=== PATIENT | male | born 1950 | race Two or more races ===

== ENCOUNTER 2023-05-01 20:09 | Inpatient (IN) | payer OTHER ==
[~2023-05-01] VITALS: Ht 190.5 cm; Wt 92.0 kg
[2023-05-01] MEDS ORDERED: IPRATROPIUM BROM 0.5 MG/2.5ML INH SOL NEB ONE ×2 (20:45→23:45)
[2023-05-01] MEDS ORDERED: ALBUTEROL SULF 2.5 MG/0.5ML(0.5%) NEB SOLN NEB ONE (20:45)
[2023-05-01] MEDS ORDERED: methylPREDNISolone SOD SUCC 125 MG/2 ML VL IV ONE (20:45)
[2023-05-01 22:40] VITALS: PULSE 136; RESP 20; O2SAT 90
[2023-05-01 22:46] LABS: Eosinophils # (auto) 0.5 10 ^3/uL (0-0.8); Eosinophils % (auto) 2.3 % (0.0-7.0); Hemoglobin 11.8 g/dL (13.5-17.5)
[2023-05-01 22:48] LABS: Basophils # (auto) 0 10 ^3/uL (0-0.2); Basophils % (auto) 0.2 % (0.0-2.0); Hematocrit 38.7 % (41.0-53.0); Lymphocytes # (auto) 1.2 10 ^3/uL (0.4-5.4); Lymphocytes % (auto) 6.2 % (10.0-50.0); Mean Corpuscular Hgb Conc. 30.5 g/dL (32.0-36.0); Monocytes # (auto) 1.6 10 ^3/uL (0-1.3); Monocytes % (auto) 7.9 % (0.0-12.0); Neutrophils # (auto) 16.4 10 ^3/uL (1.6-8.6); Neutrophils % (auto) 83.4 % (37.0-80.0); Red Blood Cells 4.72 10^6/uL (4.5-5.90); Red Cell Distribution Width 16.6 % (11.8-14.3); White Blood Cell 19.6 10^3/uL (4.4-10.8)
[2023-05-01] MEDS ORDERED: dilTIAZem 25 MG/5 ML VIAL IV ONE ×2 (23:00→23:01)
[2023-05-01 23:04] LABS: INR 1.12 (0.9-1.15); Partial Thromboplastin Time 35.9 SEC (24.5-34.5); Prothrombin Time 11.7 sec (9.3-11.8)
[2023-05-01 23:07] LABS: Alanine Aminotransferase 40 U/L (7-40); Alkaline Phosphatase 131 U/L (46-116); Anion Gap 9 (5-15); Aspartate Aminotransferase 17 U/L (13-40); BUN/Creatinine Ratio 16.9 (10.0-20.0); Blood Urea Nitrogen 14 mg/dL (9-23); Calcium 10.2 mg/dL (8.7-10.4); Carbon Dioxide 30 mmol/L (20-30); Chloride 102 mmol/L (98-107); Glucose 165 mg/dL (74-106); Sodium 141 mmol/L (136-145)
[2023-05-01 23:08] LABS: Albumin 4.3 g/dL (3.2-4.8); Bilirubin, Total 0.3 mg/dL (0.2-1.0); Total Protein 7.5 g/dL (5.7-8.2)
[2023-05-01] MEDS ORDERED: dilTIAZem 125mg/125ml BAG KIT 125 ML IV ONE (23:45)
[2023-05-02] VITALS (34 sets, daily range): BP systolic 63–134; BP diastolic 42–76; PULSE 91–144; RESP 14–26; TEMP 36.9; O2SAT 91–98
[2023-05-02] MEDS ORDERED: PIPERACILLIN-TAZOB 3.375GM 100 ML IV ONE
[2023-05-02] MEDS ORDERED: AZITHROMYCIN 500MG/ 250ML 250 ML IV ONE
[2023-05-02] MEDS ORDERED: LORazepam 2MG/ML-1ML VIAL ONE (00:05)
[2023-05-02] MEDS ORDERED: HEPARIN SODIUM (PORCINE) 5000 UNITS/ML 1ML VIAL IV ONE ×3 (00:15→14:15)
[2023-05-02] MEDS ORDERED: LORazepam 2MG/ML-1ML VIAL IV ONE (00:15)
[2023-05-02] MEDS ORDERED: SODIUM CHLORIDE 0.9% 1,000 ML IV ONE ×2 (00:15)
[2023-05-02] MEDS ORDERED: NITROGLYCERIN 0.4 MG SL TAB SL PRN (00:30)
[2023-05-02] MEDS ORDERED: DEXTROSE (50%) 50ML SYRG IV PRN (00:30)
[2023-05-02] MEDS ORDERED: ALBUTEROL SULF 2.5 MG/0.5ML(0.5%) NEB SOLN NEB PRN (00:30)
[2023-05-02] MEDS ORDERED: MORPHINE SULFATE INJ 2 MG/ml SYRG IV PRN (00:30)
[2023-05-02] MEDS ORDERED: ACETAMINOPHEN 325 MG TAB PO PRN ×2 (00:30→17:45)
[2023-05-02] MEDS ORDERED: IPRATROPIUM BROM 0.5 MG/2.5ML INH SOL NEB PRN (00:30)
[2023-05-02 01:15] LABS: Base Excess 0.3 mmol/L (-2.0-2.0)
[2023-05-02 03:14] LABS: Urine Bacteria NONE SEEN /hpf (None Seen); Urine Blood Negative /uL (Negative); Urine Clarity Clear (Clear); Urine Color Colorless (Yellow); Urine Hyaline Cast FEW /lpf (0 - 2); Urine Protein, UAD Negative (Negative); Urine Specific Gravity 1.023 (1.001-1.035); Urine Urobilinogen Normal (Negative); Urine WBC 2 /hpf (0 - 3)
[2023-05-02] MEDS ORDERED: IOHEXOL 350 MG/ML 100ML IJ ONE (04:09)
[2023-05-02] MEDS: ACCU-CHEK COMFORT CURVE STRIP VI SCH ×4 (06:33→21:33)
[2023-05-02] MEDS: InsuLIN REG 1unit/0.01ml Soln (100units/ml) SC SCH ×4 (06:35→21:36)
[2023-05-02] MEDS ORDERED: HEPARIN DRIP/D5W 100UNITS/ML 250 ML IV SCH (07:00)
[2023-05-02 08:02] LABS: Triglycerides 62 mg/dL (< 150)
[2023-05-02 08:03] LABS: LDL Cholesterol 75 mg/dL (< 100)
[2023-05-02 08:04] LABS: Cholesterol 125 mg/dL (< 200); HDL Cholesterol 38 mg/dL (40-59)
[2023-05-02] MEDS ORDERED: dilTIAZem 125mg/125ml BAG KIT 100 ML IV SCH (08:30)
[2023-05-02] MEDS: ONDANSETRON HCL 4 MG/2 ML VIAL IV PRN (08:45)
[2023-05-02] MEDS ORDERED: cefTRIAXone 1GM/50ML D5W 50 ML IV SCH (09:00)
[2023-05-02] MEDS ORDERED: ASPirin 81 mg TAB PO SCH (10:00)
[2023-05-02] MEDS ORDERED: ENOXAPARIN SOD 40 MG/0.4 ML SYRINGE SC SCH (10:00)
[2023-05-02] MEDS ORDERED: AZITHROMYCIN 500MG/ 250ML 250 ML IV SCH (10:00)
[2023-05-02 10:44] LABS: Chloride 105 mmol/L (98-107); Potassium 4.3 mmol/L (3.5-5.1); Sodium 141 mmol/L (136-145)
[2023-05-02 10:45] LABS: Anion Gap 13 (5-15); Calcium 9.4 mg/dL (8.5-10.1); Carbon Dioxide 23 mmol/L (20-30)
[2023-05-02 10:50] LABS: BUN/Creatinine Ratio 24.6 (10.0-20.0); Blood Urea Nitrogen 17 mg/dL (9-23); Glucose 205 mg/dL (74-106)
[2023-05-02] MEDS ORDERED: METOPROLOL TARTRATE 50 MG TAB ONE (11:40)
[2023-05-02] MEDS: METOPROLOL TARTRATE 50 MG TAB PO SCH ×2 (11:45→21:33)
[2023-05-02] MEDS ORDERED: fentaNYL CITRATE 100 MCG/2 ML VL ONE (12:55)
[2023-05-02] MEDS ORDERED: ANGIOMAX 250 MG VIAL IV ONE (12:55)
[2023-05-02] MEDS ORDERED: LIDOCAINE 2%HCL (LOCAL ANESTH.) INJ 20ML MDV ONE (12:56)
[2023-05-02] MEDS ORDERED: MIDAZOLAM HCL 2MG/2ML 2ml VIAL (1mg/ml) ONE (12:56)
[2023-05-02] MEDS ORDERED: SODIUM CHL 0.9% 0 ML ONE (12:56)
[2023-05-02 12:59] LABS: Eosinophils # (auto) 0 10 ^3/uL (0-0.8); Monocytes # (auto) 0.7 10 ^3/uL (0-1.3); Red Cell Distribution Width 16.7 % (11.8-14.3)
[2023-05-02 13:00] LABS: Basophils # (auto) 0 10 ^3/uL (0-0.2); Basophils % (auto) 0.2 % (0.0-2.0); Eosinophils % (auto) 0.1 % (0.0-7.0); Hematocrit 35.8 % (41.0-53.0); Hemoglobin 11.5 g/dL (13.5-17.5); Lymphocytes # (auto) 0.6 10 ^3/uL (0.4-5.4); Lymphocytes % (auto) 3.5 % (10.0-50.0); Mean Corpuscular Hemoglobin 25.9 pg (28.0-32.0); Mean Corpuscular Hgb Conc. 32.1 g/dL (32.0-36.0); Mean Corpuscular Volume 80.6 fL (80.0-100.0); Neutrophils # (auto) 15.8 10 ^3/uL (1.6-8.6); Neutrophils % (auto) 92.2 % (37.0-80.0); Red Blood Cells 4.45 10^6/uL (4.5-5.90); White Blood Cell 17.1 10^3/uL (4.4-10.8)
[2023-05-02 13:29] LABS: INR 1.12 (0.9-1.15); Partial Thromboplastin Time 33.8 SEC (24.5-34.5); Prothrombin Time 11.7 sec (9.3-11.8)
[2023-05-02] MEDS ORDERED: HEPARIN SODIUM (PORCINE) 5000 UNITS/ML 1ML VIAL ONE ×2 (14:28→14:29)
[2023-05-02 17:43] LABS: INR 1.19 (0.9-1.15); Prothrombin Time 12.4 sec (9.3-11.8)
[2023-05-02 18:02] LABS: Partial Thromboplastin Time 73.2 SEC (24.5-34.5)
[2023-05-02] MEDS: HYDROcodone-ACET 5/325MG TAB PO PRN (18:27)
[2023-05-02] MEDS: HEPARIN DRIP/D5W 100UNITS/ML 250 ML IV SCH (21:07)
[2023-05-02] MEDS: ATORVASTATIN 20 MG TAB PO SCH (21:32)
[2023-05-02 23:22] LABS: INR 1.12 (0.9-1.15); Partial Thromboplastin Time 24.2 SEC (24.5-34.5); Prothrombin Time 11.7 sec (9.3-11.8)
[2023-05-03] VITALS (55 sets, daily range): BP systolic 92–138; BP diastolic 43–79; PULSE 93–124; RESP 14–29; TEMP 98–98.8; O2SAT 89–99
[2023-05-03] MEDS: HEPARIN DRIP/D5W 100UNITS/ML 250 ML IV SCH (00:06)
[2023-05-03 04:53] LABS: Basophils # (auto) 0.1 10 ^3/uL (0-0.2); Basophils % (auto) 0.4 % (0.0-2.0); Hemoglobin 10.2 g/dL (13.5-17.5); Lymphocytes # (auto) 1.5 10 ^3/uL (0.4-5.4); Lymphocytes % (auto) 6.8 % (10.0-50.0); White Blood Cell 22.4 10^3/uL (4.4-10.8)
[2023-05-03 04:55] LABS: Eosinophils # (auto) 0 10 ^3/uL (0-0.8); Eosinophils % (auto) 0.2 % (0.0-7.0); Hematocrit 32.8 % (41.0-53.0); Mean Corpuscular Hemoglobin 25.6 pg (28.0-32.0); Mean Corpuscular Hgb Conc. 31.2 g/dL (32.0-36.0); Mean Corpuscular Volume 82.2 fL (80.0-100.0); Monocytes # (auto) 2.3 10 ^3/uL (0-1.3); Monocytes % (auto) 10.3 % (0.0-12.0); Neutrophils # (auto) 18.4 10 ^3/uL (1.6-8.6); Neutrophils % (auto) 82.3 % (37.0-80.0); Red Blood Cells 3.99 10^6/uL (4.5-5.90); Red Cell Distribution Width 16.9 % (11.8-14.3)
[2023-05-03 05:03] LABS: Alanine Aminotransferase 31 U/L (7-40); Albumin 3.7 g/dL (3.2-4.8); Alkaline Phosphatase 97 U/L (46-116); Anion Gap 7 (5-15); Aspartate Aminotransferase 20 U/L (13-40); BUN/Creatinine Ratio 20.9 (10.0-20.0); Bilirubin, Total 0.3 mg/dL (0.2-1.0); Blood Urea Nitrogen 14 mg/dL (9-23); Carbon Dioxide 29 mmol/L (20-30); Chloride 101 mmol/L (98-107); Glucose 142 mg/dL (74-106); Potassium 4.1 mmol/L (3.5-5.1); Sodium 137 mmol/L (136-145); Total Protein 6.3 g/dL (5.7-8.2)
[2023-05-03 05:07] LABS: INR 1.13 (0.9-1.15); Partial Thromboplastin Time 34.4 SEC (24.5-34.5); Prothrombin Time 11.8 sec (9.3-11.8)
[2023-05-03] MEDS: ACCU-CHEK COMFORT CURVE STRIP VI SCH ×4 (06:13→22:04)
[2023-05-03] MEDS: HYDROcodone-ACET 5/325MG TAB PO PRN (06:13)
[2023-05-03] MEDS: InsuLIN REG 1unit/0.01ml Soln (100units/ml) SC SCH ×4 (06:14→22:00)
[2023-05-03] MEDS ORDERED: ALBUTEROL MEDNEB 2.5 mg/3ml NEB ONE (06:14)
[2023-05-03 06:56] LABS: INR 1.14 (0.9-1.15); Partial Thromboplastin Time 33.5 SEC (24.5-34.5); Prothrombin Time 11.9 sec (9.3-11.8)
[2023-05-03] MEDS ORDERED: HEPARIN SODIUM (PORCINE) 5000 UNITS/ML 1ML VIAL IV ONE ×2 (07:45)
[2023-05-03] MEDS ORDERED: APIX5TAB PO ×2 (08:57)
[2023-05-03] MEDS: levoFLOXacin 500MG 100 ML IV SCH ×2 (09:00→10:00)
[2023-05-03] MEDS: ONDANSETRON HCL 4 MG/2 ML VIAL IV PRN (09:16)
[2023-05-03] MEDS: ASPirin 81 mg TAB PO SCH (10:00)
[2023-05-03] MEDS: HYDROcodone-ACET 10/325MG TAB PO PRN ×2 (10:31→18:28)
[2023-05-03] MEDS: METOPROLOL TARTRATE 50 MG TAB PO SCH ×2 (10:32→22:00)
[2023-05-03 10:35] LABS: Base Excess 1.2 mmol/L (-2.0-2.0)
[2023-05-03] MEDS ORDERED: fentaNYL CITRATE 100 MCG/2 ML VL ONE ×3 (12:32→16:15)
[2023-05-03] MEDS ORDERED: ANGIOMAX 250 MG VIAL IV ONE (12:32)
[2023-05-03] MEDS ORDERED: MIDAZOLAM HCL 2MG/2ML 2ml VIAL (1mg/ml) ONE (12:33)
[2023-05-03] MEDS ORDERED: SODIUM CHL 0.9% 0 ML ONE (12:33)
[2023-05-03] MEDS ORDERED: LIDOCAINE 2%HCL (LOCAL ANESTH.) INJ 20ML MDV ONE (12:35)
[2023-05-03] MEDS ORDERED: HEPARIN SODIUM (PORCINE) 5000 UNITS/ML 1ML VIAL ONE ×2 (14:07→15:39)
[2023-05-03] MEDS ORDERED: HEPARIN 1,000 UNITS/ml 1ML VIAL ONE (14:31)
[2023-05-03] MEDS ORDERED: IOHEXOL 350 MG/ML 100ML IJ ONE (14:36)
[2023-05-03] MEDS ORDERED: IODIXANOL 320MG/ML 100ML BTL IV ONE ×2 (15:04→16:18)
[2023-05-03] MEDS ORDERED: ENOXAPARIN SOD 100 MG/1 ML SYRINGE SC ONE (16:45)
[2023-05-03 17:28] LABS: Basophils # (auto) 0.1 10 ^3/uL (0-0.2); Basophils % (auto) 0.4 % (0.0-2.0); Eosinophils # (auto) 0.3 10 ^3/uL (0-0.8); Hemoglobin 9.9 g/dL (13.5-17.5); Lymphocytes # (auto) 1.3 10 ^3/uL (0.4-5.4); Nucleated Red Blood Cells % 0.1 %; White Blood Cell 24.1 10^3/uL (4.4-10.8)
[2023-05-03 17:30] LABS: Eosinophils % (auto) 1.3 % (0.0-7.0); Hematocrit 31.9 % (41.0-53.0); Lymphocytes % (auto) 5.3 % (10.0-50.0); Mean Corpuscular Hemoglobin 25.2 pg (28.0-32.0); Mean Corpuscular Hgb Conc. 30.9 g/dL (32.0-36.0); Mean Corpuscular Volume 81.5 fL (80.0-100.0); Monocytes # (auto) 2.8 10 ^3/uL (0-1.3); Monocytes % (auto) 11.7 % (0.0-12.0); Neutrophils # (auto) 19.6 10 ^3/uL (1.6-8.6); Neutrophils % (auto) 81.3 % (37.0-80.0); Red Blood Cells 3.92 10^6/uL (4.5-5.90); Red Cell Distribution Width 16.8 % (11.8-14.3)
[2023-05-03] MEDS: ATORVASTATIN 20 MG TAB PO SCH (22:00)
[2023-05-04] VITALS (34 sets, daily range): BP systolic 93–137; BP diastolic 43–82; PULSE 109–131; RESP 15–29; TEMP 97.3–98.9; O2SAT 89–99
[2023-05-04 05:02] LABS: Basophils # (auto) 0.1 10 ^3/uL (0-0.2); Eosinophils # (auto) 0.7 10 ^3/uL (0-0.8); Hemoglobin 9.3 g/dL (13.5-17.5)
[2023-05-04 05:04] LABS: Basophils % (auto) 0.5 % (0.0-2.0); Eosinophils % (auto) 3.3 % (0.0-7.0); Lymphocytes # (auto) 1.1 10 ^3/uL (0.4-5.4); Lymphocytes % (auto) 5.3 % (10.0-50.0); Mean Corpuscular Hemoglobin 25.4 pg (28.0-32.0); Monocytes # (auto) 2.2 10 ^3/uL (0-1.3); Monocytes % (auto) 10.5 % (0.0-12.0); Neutrophils # (auto) 16.5 10 ^3/uL (1.6-8.6); Neutrophils % (auto) 80.4 % (37.0-80.0); Nucleated Red Blood Cells % 0.1 %; Red Blood Cells 3.66 10^6/uL (4.5-5.90); Red Cell Distribution Width 17.1 % (11.8-14.3); White Blood Cell 20.5 10^3/uL (4.4-10.8)
[2023-05-04 05:32] LABS: Anion Gap 8 (5-15); Carbon Dioxide 28 mmol/L (20-30); Chloride 100 mmol/L (98-107); Potassium 3.9 mmol/L (3.5-5.1); Sodium 136 mmol/L (136-145)
[2023-05-04 05:33] LABS: Calcium 8.6 mg/dL (8.7-10.4)
[2023-05-04 05:38] LABS: BUN/Creatinine Ratio 17.5 (10.0-20.0); Blood Urea Nitrogen 11 mg/dL (9-23); Glucose 152 mg/dL (74-106)
[2023-05-04] MEDS: HYDROcodone-ACET 10/325MG TAB PO PRN ×2 (06:05→12:24)
[2023-05-04] MEDS: InsuLIN REG 1unit/0.01ml Soln (100units/ml) SC SCH ×4 (06:50→22:15)
[2023-05-04] MEDS: ACCU-CHEK COMFORT CURVE STRIP VI SCH ×4 (06:51→22:15)
[2023-05-04] MEDS ORDERED: guaiFENesin-DM 100/10mg/5ml SYR PO PRN (09:00)
[2023-05-04] MEDS: IPRATROPIUM BROM 0.5 MG/2.5ML INH SOL NEB SCH ×2 (09:20→19:08)
[2023-05-04] MEDS: LEVALBUTEROL HCL 1.25 MG/3 ML NEB NEB SCH ×2 (09:20→19:08)
[2023-05-04] MEDS: levoFLOXacin 500MG 100 ML IV SCH (10:08)
[2023-05-04] MEDS: ASPirin 81 mg TAB PO SCH (10:08)
[2023-05-04] MEDS: METOPROLOL TARTRATE 50 MG TAB PO SCH ×2 (10:09→21:42)
[2023-05-04] MEDS: ENOXAPARIN SOD 100 MG/1 ML SYRINGE SC SCH ×2 (10:09→22:00)
[2023-05-04] MEDS ORDERED: ALBUTEROL SULF 2.5 MG/0.5ML(0.5%) NEB SOLN NEB SCH (12:00)
[2023-05-04] MEDS: ATORVASTATIN 20 MG TAB PO SCH (21:41)
[2023-05-05] VITALS (33 sets, daily range): BP systolic 96–148; BP diastolic 44–72; PULSE 103–124; RESP 17–29; TEMP 97.8–98.5; O2SAT 92–100
[2023-05-05 04:11] LABS: Basophils # (auto) 0.1 10 ^3/uL (0-0.2); Eosinophils # (auto) 0.4 10 ^3/uL (0-0.8); Hemoglobin 9.3 g/dL (13.5-17.5); Lymphocytes # (auto) 1.1 10 ^3/uL (0.4-5.4); Monocytes # (auto) 1.9 10 ^3/uL (0-1.3); Monocytes % (auto) 9.5 % (0.0-12.0)
[2023-05-05 04:13] LABS: Basophils % (auto) 0.3 % (0.0-2.0); Eosinophils % (auto) 2.1 % (0.0-7.0); Hematocrit 29.6 % (41.0-53.0); Lymphocytes % (auto) 5.7 % (10.0-50.0); Mean Corpuscular Hemoglobin 25.9 pg (28.0-32.0); Mean Corpuscular Hgb Conc. 31.2 g/dL (32.0-36.0); Neutrophils # (auto) 16.1 10 ^3/uL (1.6-8.6); Neutrophils % (auto) 82.4 % (37.0-80.0); Red Blood Cells 3.57 10^6/uL (4.5-5.90); Red Cell Distribution Width 16.8 % (11.8-14.3); White Blood Cell 19.6 10^3/uL (4.4-10.8)
[2023-05-05 04:21] LABS: INR 1.19 (0.9-1.15); Partial Thromboplastin Time 35.3 SEC (24.5-34.5); Prothrombin Time 12.4 sec (9.3-11.8)
[2023-05-05] MEDS: ACCU-CHEK COMFORT CURVE STRIP VI SCH ×4 (06:44→22:15)
[2023-05-05] MEDS: InsuLIN REG 1unit/0.01ml Soln (100units/ml) SC SCH ×4 (06:44→22:17)
[2023-05-05] MEDS: LEVALBUTEROL HCL 1.25 MG/3 ML NEB NEB SCH ×3 (07:05→18:56)
[2023-05-05] MEDS: IPRATROPIUM BROM 0.5 MG/2.5ML INH SOL NEB SCH ×3 (07:06→18:56)
[2023-05-05 08:19] LABS: Chloride 100 mmol/L (98-107); Potassium 3.9 mmol/L (3.5-5.1); Sodium 136 mmol/L (136-145)
[2023-05-05 08:20] LABS: Anion Gap 5 (5-15); Carbon Dioxide 31 mmol/L (20-30)
[2023-05-05 08:21] LABS: Calcium 8.6 mg/dL (8.5-10.1)
[2023-05-05 08:26] LABS: BUN/Creatinine Ratio 19.6 (10.0-20.0); Blood Urea Nitrogen 11 mg/dL (9-23); Glucose 132 mg/dL (74-106)
[2023-05-05] MEDS: levoFLOXacin 500MG 100 ML IV SCH (09:16)
[2023-05-05] MEDS: METOPROLOL TARTRATE 50 MG TAB PO SCH ×2 (09:17→22:08)
[2023-05-05] MEDS: ASPirin 81 mg TAB PO SCH (10:10)
[2023-05-05] MEDS ORDERED: fentaNYL CITRATE 100 MCG/2 ML VL IV ONE (10:30)
[2023-05-05] MEDS ORDERED: MIDAZOLAM HCL 2MG/2ML 2ml VIAL (1mg/ml) IV ONE (10:30)
[2023-05-05] MEDS: APIXABAN 5 MG TAB PO SCH ×2 (10:31→22:09)
[2023-05-05] MEDS ORDERED: MET50T PO ×2 (10:44)
[2023-05-05] MEDS ORDERED: LEVO500T91 PO (10:44)
[2023-05-05] MEDS ORDERED: ALBUAER3 IN (10:44)
[2023-05-05] MEDS ORDERED: IOHEXOL 300 MG/ML 100ML BOTTLE IJ ONE (11:50)
[2023-05-05] MEDS ORDERED: APIX5TAB4 PO (15:42)
[2023-05-05] MEDS: HYDROcodone-ACET 10/325MG TAB PO PRN (17:54)
[2023-05-05] MEDS: ATORVASTATIN 20 MG TAB PO SCH (22:09)
[2023-05-06] VITALS (31 sets, daily range): BP systolic 89–131; BP diastolic 38–75; PULSE 101–126; RESP 15–36; TEMP 98.5–99.1; O2SAT 86–98
[2023-05-06] MEDS: ACCU-CHEK COMFORT CURVE STRIP VI SCH ×4 (06:23→21:42)
[2023-05-06] MEDS: InsuLIN REG 1unit/0.01ml Soln (100units/ml) SC SCH ×4 (06:24→22:00)
[2023-05-06] MEDS: LEVALBUTEROL HCL 1.25 MG/3 ML NEB NEB SCH ×3 (07:01→18:34)
[2023-05-06] MEDS: IPRATROPIUM BROM 0.5 MG/2.5ML INH SOL NEB SCH ×3 (07:01→18:34)
[2023-05-06] MEDS: APIXABAN 5 MG TAB PO SCH ×2 (09:49→21:42)
[2023-05-06] MEDS: ASPirin 81 mg TAB PO SCH (09:49)
[2023-05-06] MEDS: METOPROLOL TARTRATE 50 MG TAB PO SCH ×2 (09:49→21:43)
[2023-05-06] MEDS: levoFLOXacin 500MG 100 ML IV SCH (09:50)
[2023-05-06] MEDS: HYDROcodone-ACET 10/325MG TAB PO PRN (16:34)
[2023-05-06] MEDS: ATORVASTATIN 20 MG TAB PO SCH (21:43)
[2023-05-07] VITALS (32 sets, daily range): BP systolic 95–145; BP diastolic 44–80; PULSE 97–152; RESP 16–30; TEMP 98.3–98.9; O2SAT 90–100
[2023-05-07 00:59] LABS: Hemoglobin 9.2 g/dL (13.5-17.5); Mean Corpuscular Hemoglobin 24.8 pg (28.0-32.0); Red Blood Cells 3.72 10^6/uL (4.5-5.90); Red Cell Distribution Width 17.1 % (11.8-14.3)
[2023-05-07 01:01] LABS: Hematocrit 29.5 % (41.0-53.0); Mean Corpuscular Hgb Conc. 31.3 g/dL (32.0-36.0); Mean Corpuscular Volume 79.3 fL (80.0-100.0); White Blood Cell 21.7 10^3/uL (4.4-10.8)
[2023-05-07 01:04] LABS: Basophils % (manual) 0 (0.0-2.0); Blast Cells 0; Metamyelocytes % 0; Myelocytes % 0; Promyelocytes % 0; Reactive Lymphocytes 0
[2023-05-07 01:09] LABS: Alanine Aminotransferase 25 U/L (7-40); Albumin 3.5 g/dL (3.2-4.8); Alkaline Phosphatase 85 U/L (46-116); Anion Gap 4 (5-15); Aspartate Aminotransferase 17 U/L (13-40); BUN/Creatinine Ratio 21.1 (10.0-20.0); Blood Urea Nitrogen 12 mg/dL (9-23); Calcium 9.1 mg/dL (8.7-10.4); Carbon Dioxide 32 mmol/L (20-30); Chloride 98 mmol/L (98-107); Glucose 173 mg/dL (74-106); Sodium 134 mmol/L (136-145)
[2023-05-07 01:10] LABS: Bilirubin, Total 0.3 mg/dL (0.2-1.0); Total Protein 6.1 g/dL (5.7-8.2)
[2023-05-07] MEDS: HYDROcodone-ACET 10/325MG TAB PO PRN ×3 (01:47→20:36)
[2023-05-07 02:07] LABS: Anisocytosis Slight; Band Neutrophils % (manual) 1; Eosinophils % (manual) 3 (0-7); Hypochromia Slight; Lymphocytes % (manual) 2 (10.0-50.0); Monocytes % (manual) 4 (0-12); Platelet Estimate Adequate; Polychromasia Slight
[2023-05-07] MEDS: ACCU-CHEK COMFORT CURVE STRIP VI SCH ×4 (06:55→20:37)
[2023-05-07] MEDS: InsuLIN REG 1unit/0.01ml Soln (100units/ml) SC SCH ×4 (06:56→20:42)
[2023-05-07] MEDS: IPRATROPIUM BROM 0.5 MG/2.5ML INH SOL NEB SCH ×3 (07:54→18:39)
[2023-05-07] MEDS: LEVALBUTEROL HCL 1.25 MG/3 ML NEB NEB SCH ×3 (07:55→18:40)
[2023-05-07] MEDS: APIXABAN 5 MG TAB PO SCH ×2 (10:38→20:36)
[2023-05-07] MEDS: levoFLOXacin 500MG 100 ML IV SCH (10:38)
[2023-05-07] MEDS: ASPirin 81 mg TAB PO SCH (10:38)
[2023-05-07] MEDS: METOPROLOL TARTRATE 50 MG TAB PO SCH ×2 (10:39→20:37)
[2023-05-07] MEDS ORDERED: METO25TA5 PO (12:25)
[2023-05-07] MEDS ORDERED: METOPROLOL TARTRATE 25 MG TAB PO ONE (12:30)
[2023-05-07] MEDS: ATORVASTATIN 20 MG TAB PO SCH (20:37)
[2023-05-08] VITALS (26 sets, daily range): BP systolic 101–143; BP diastolic 43–74; PULSE 105–129; RESP 18–34; TEMP 97.7–98.5; O2SAT 91–99
[2023-05-08] MEDS: HYDROcodone-ACET 10/325MG TAB PO PRN ×3 (03:59→17:53)
[2023-05-08] MEDS: ACCU-CHEK COMFORT CURVE STRIP VI SCH ×3 (07:15→17:00)
[2023-05-08] MEDS: InsuLIN REG 1unit/0.01ml Soln (100units/ml) SC SCH ×3 (07:20→17:00)
[2023-05-08] MEDS: LEVALBUTEROL HCL 1.25 MG/3 ML NEB NEB SCH ×2 (07:49→13:25)
[2023-05-08] MEDS: IPRATROPIUM BROM 0.5 MG/2.5ML INH SOL NEB SCH ×2 (07:49→13:24)
[2023-05-08] MEDS: APIXABAN 5 MG TAB PO SCH (09:39)
[2023-05-08] MEDS: METOPROLOL TARTRATE 50 MG TAB PO SCH (09:40)
[2023-05-08] MEDS: levoFLOXacin 500MG 100 ML IV SCH (09:40)
[2023-05-08] MEDS: ASPirin 81 mg TAB PO SCH (09:40)
[2023-05-12] MEDS ORDERED: APIXABAN 5 MG TAB PO SCH (10:00)
== END 2023-05-08 18:42 | disposition home or self-care (01) | DRG 853 ==
LOC: EDBD 20:09 → ER 20:09 → TELE 05-02 00:39 → ICU WEST 05-02 13:48
PROVIDERS: ADMIT Nurse Practitioner; ATTEND Internal Medicine
PROC: 06CM3ZZ Extirpation of Matter from Right Femoral Vein, Percutaneous Approach (ICD-10-PCS; principal; 2023-05-02)
PROC: 4A023N6 Measurement of Cardiac Sampling and Pressure, Right Heart, Percutaneous Approach (ICD-10-PCS; 2023-05-02)
PROC: 06H03DZ Insertion of Intraluminal Device into Inferior Vena Cava, Percutaneous Approach (ICD-10-PCS; 2023-05-03)
PROC: B549ZZA Ultrasonography of Inferior Vena Cava, Guidance (ICD-10-PCS; 2023-05-03)
PROC: B54MZZA Ultrasonography of Right Upper Extremity Veins, Guidance (ICD-10-PCS; 2023-05-03)
PROC: B5191ZA Fluoroscopy of Inferior Vena Cava using Low Osmolar Contrast, Guidance (ICD-10-PCS; 2023-05-03)
PROC: B5131ZA Fluoroscopy of Right Jugular Veins using Low Osmolar Contrast, Guidance (ICD-10-PCS; 2023-05-03)
PROC: B51 Imaging, Veins, Fluoroscopy (ICD-10-PCS; 2023-05-03)
PROC: 06PY3DZ Removal of Intraluminal Device from Lower Vein, Percutaneous Approach (ICD-10-PCS; 2023-05-03)
DX: A41.9 Sepsis, unspecified organism (principal); I21.A1 Myocardial infarction type 2; I26.99 Other pulmonary embolism without acute cor pulmonale; J96.21 Acute and chronic respiratory failure with hypoxia; I82.220 Acute embolism and thrombosis of inferior vena cava; J15.69 Pneumonia due to other Gram-negative bacteria; J15.9 Unspecified bacterial pneumonia; C64.9 Malignant neoplasm of unspecified kidney, except renal pelvis; J81.1 Chronic pulmonary edema; J90 Pleural effusion, not elsewhere classified; E11.42 Type 2 diabetes mellitus with diabetic polyneuropathy; E27.8 Other specified disorders of adrenal gland; E78.5 Hyperlipidemia, unspecified; J43.9 Emphysema, unspecified; K59.00 Constipation, unspecified; N20.0 Calculus of kidney; N40.0 Benign prostatic hyperplasia without lower urinary tract symptoms; Z86.16 Personal history of COVID-19; Z87.01 Personal history of pneumonia (recurrent); Z87.891 Personal history of nicotine dependence; Z79.84 Long term (current) use of oral hypoglycemic drugs; Z87.442 Personal history of urinary calculi; Z86.711 Personal history of pulmonary embolism; Z91.199 Patient's noncompliance with other medical treatment and regimen due to unspecified reason
CPT/HCPCS: 34201; 36415; 36600; 37191; 37193; 71045; 71275; 74178; 76775; 80048; 80053; 80061; 81001; 82805; 82962; 83036; 83605; 83880; 84443; 84484; 85007; 85025; 85027; 85610; 85730; 86850; 86900; 86901; 87040; 87081; 93005; 93306; 93970; 94640; 94644; 94660; 96374; 96375; 97110; 97116; 97163; 97530; 99152; 99153; 99291; C1894; G0378; J0696; J1815; J1956; J2250; J2405; J2543; Q9967

== ENCOUNTER 2023-05-09 17:16 | Inpatient (IN) | payer OTHER ==
[~2023-05-09] VITALS: Ht 193 cm; Wt 90.5 kg
[~2023-05-09 17:16] MED LIST: ALBUAER3 IN; APIX5TAB4 PO; LEVO500T91 PO; METO25TA5 PO
[2023-05-09 18:28] VITALS: PULSE 165; RESP 33; O2SAT 94
[2023-05-09 18:29] LABS: Hematocrit 29.4 % (41.0-53.0); Hemoglobin 9.1 g/dL (13.5-17.5); Mean Corpuscular Hemoglobin 24.6 pg (28.0-32.0); Mean Corpuscular Hgb Conc. 30.8 g/dL (32.0-36.0); Mean Corpuscular Volume 79.9 fL (80.0-100.0); Red Blood Cells 3.68 10^6/uL (4.5-5.90); Red Cell Distribution Width 17.4 % (11.8-14.3); White Blood Cell 27.7 10^3/uL (4.4-10.8)
[2023-05-09 18:31] LABS: Basophils % (manual) 0 (0.0-2.0); Blast Cells 0; Metamyelocytes % 0; Myelocytes % 0; Promyelocytes % 0; Reactive Lymphocytes 0
[2023-05-09 18:40] LABS: Alanine Aminotransferase 29 U/L (7-40); Albumin 3.9 g/dL (3.2-4.8); Alkaline Phosphatase 118 U/L (46-116); Anion Gap 10 (5-15); Aspartate Aminotransferase 25 U/L (13-40); BUN/Creatinine Ratio 30.8 (10.0-20.0); Bilirubin, Total 0.4 mg/dL (0.2-1.0); Blood Urea Nitrogen 20 mg/dL (9-23); Calcium 9.9 mg/dL (8.5-10.1); Carbon Dioxide 29 mmol/L (20-30); Chloride 98 mmol/L (98-107); Glucose 143 mg/dL (74-106); Potassium 4.3 mmol/L (3.5-5.1); Sodium 137 mmol/L (136-145); Total Protein 6.8 g/dL (5.7-8.2)
[2023-05-09 19:19] LABS: Anisocytosis Slight; Band Neutrophils % (manual) 2; Eosinophils % (manual) 2 (0-7); Hypochromia Moderate; Lymphocytes % (manual) 3 (10.0-50.0); Monocytes % (manual) 8 (0-12)
[2023-05-09 19:20] LABS: Platelet Estimate Increased
[2023-05-09 19:35] VITALS: PULSE 167; RESP 38; O2SAT 95
[2023-05-09] MEDS ORDERED: ADENOSINE 6 MG/2 ML INJ IV ONE ×2 (20:00)
[2023-05-09] MEDS ORDERED: PIPERACILLIN-TAZOB 3.375GM 100 ML IV ONE (20:15)
[2023-05-09] MEDS ORDERED: VANCOMYCIN PER PHARMACY 0 MG IV SCH ×2 (20:15→21:30)
[2023-05-09] MEDS ORDERED: SODIUM CHLORIDE 0.9% 500 ML IV ONE (20:15)
[2023-05-09] MEDS ORDERED: VANCOMYCIN 1GM/250ML 250 ML IV ONE (20:30)
[2023-05-09] MEDS ORDERED: NITROGLYCERIN 0.4 MG SL TAB SL PRN (21:30)
[2023-05-09] MEDS ORDERED: MORPHINE SULFATE INJ 2 MG/ml SYRG IV PRN (21:30)
[2023-05-09] MEDS ORDERED: METOPROLOL TARTRATE 1MG/1ML-5ML VIAL IV PRN (21:30)
[2023-05-09] MEDS ORDERED: ONDANSETRON HCL 4 MG/2 ML VIAL IV PRN (21:30)
[2023-05-09] MEDS ORDERED: ACETAMINOPHEN 325 MG TAB PO PRN (21:30)
[2023-05-09] MEDS ORDERED: METOPROLOL TARTRATE 25 MG TAB PO SCH (22:00)
[2023-05-09] MEDS ORDERED: APIXABAN 5 MG TAB PO SCH (22:00)
[2023-05-10] VITALS (13 sets, daily range): BP systolic 104–142; BP diastolic 63–72; PULSE 99–119; RESP 18–34; TEMP 98.1–98.6; O2SAT 88–98
[2023-05-10] MEDS: ERTAPENEM SOD INJ 1 GM in SODIUM CHL 0.9% 50 ML IV SCH ×2 (00:38→11:19)
[2023-05-10 05:24] LABS: Mean Corpuscular Hemoglobin 24.6 pg (28.0-32.0); Mean Corpuscular Hgb Conc. 31.1 g/dL (32.0-36.0); Nucleated Red Blood Cells % 0.1 %
[2023-05-10 05:27] LABS: Basophils # (auto) 0.1 10 ^3/uL (0-0.2); Basophils % (auto) 0.4 % (0.0-2.0); Eosinophils # (auto) 0.4 10 ^3/uL (0-0.8); Eosinophils % (auto) 1.5 % (0.0-7.0); Hematocrit 26.8 % (41.0-53.0); Hemoglobin 8.3 g/dL (13.5-17.5); Lymphocytes # (auto) 1.1 10 ^3/uL (0.4-5.4); Lymphocytes % (auto) 4.5 % (10.0-50.0); Monocytes % (auto) 8.1 % (0.0-12.0); Neutrophils # (auto) 21.3 10 ^3/uL (1.6-8.6); Neutrophils % (auto) 85.5 % (37.0-80.0); Red Blood Cells 3.39 10^6/uL (4.5-5.90); Red Cell Distribution Width 17.5 % (11.8-14.3); White Blood Cell 24.9 10^3/uL (4.4-10.8)
[2023-05-10 05:30] LABS: Chloride 98 mmol/L (98-107); Sodium 137 mmol/L (136-145)
[2023-05-10 05:31] LABS: Anion Gap 10 (5-15); Calcium 9.5 mg/dL (8.5-10.1); Carbon Dioxide 29 mmol/L (20-30)
[2023-05-10 05:36] LABS: BUN/Creatinine Ratio 26.7 (10.0-20.0); Blood Urea Nitrogen 20 mg/dL (9-23); Glucose 155 mg/dL (74-106)
[2023-05-10] MEDS: HYDROcodone-ACET 5/325MG TAB PO PRN ×2 (06:57→19:04)
[2023-05-10] MEDS ORDERED: DEXTROSE (50%) 50ML SYRG IV PRN (07:30)
[2023-05-10] MEDS ORDERED: ALBUTEROL SULF 2.5 MG/0.5ML(0.5%) NEB SOLN NEB PRN (07:30)
[2023-05-10] MEDS ORDERED: HEPARIN DRIP/D5W 100UNITS/ML 250 ML IV SCH ×3 (10:00→19:15)
[2023-05-10] MEDS ORDERED: VANCOMYCIN 1GM/250ML 250 ML IV SCH (11:00)
[2023-05-10 11:01] LABS: INR 1.25 (0.9-1.15); Partial Thromboplastin Time 37.4 SEC (24.5-34.5); Prothrombin Time 12.9 sec (9.3-11.8)
[2023-05-10] MEDS ORDERED: ALBUTEROL MEDNEB 2.5 mg/3ml NEB NEB SCH (13:15)
[2023-05-10] MEDS: InsuLIN REG 1unit/0.01ml Soln (100units/ml) SC SCH ×2 (14:42→18:14)
[2023-05-10] MEDS: ACCU-CHEK COMFORT CURVE STRIP VI SCH ×3 (14:43→22:00)
[2023-05-10 14:45] LABS: Urine Bacteria NONE SEEN /hpf (None Seen); Urine Blood 1+ /uL (Negative); Urine Clarity Clear (Clear); Urine Color Colorless (Yellow); Urine Protein, UAD Negative (Negative); Urine Specific Gravity 1.048 (1.001-1.035); Urine Urobilinogen Normal (Negative); Urine WBC 4 /hpf (0 - 3); Urine pH 5.5 (5.0-8.0)
[2023-05-10] MEDS: methylPREDNISolone SOD SUCC 40 MG/ML VL IV SCH ×2 (18:09→21:15)
[2023-05-10] MEDS: VANCOMYCIN 1GM/250ML 250 ML IV SCH (18:10)
[2023-05-10] MEDS: IPRATROPIUM BROM 0.5 MG/2.5ML INH SOL NEB SCH ×2 (19:17→23:55)
[2023-05-10] MEDS: ALBUTEROL MEDNEB 2.5 mg/3ml NEB NEB SCH ×2 (19:17→23:55)
[2023-05-10] MEDS ORDERED: InsuLIN REG 1unit/0.01ml Soln (100units/ml) SC SCH (22:00)
[2023-05-10] MEDS: METOPROLOL TARTRATE 25 MG TAB PO SCH (22:00)
[2023-05-11] VITALS (28 sets, daily range): BP systolic 98–133; BP diastolic 58–84; PULSE 85–159; RESP 14–47; TEMP 97.4–98.1; O2SAT 89–99
[2023-05-11] MEDS: HYDROcodone-ACET 5/325MG TAB PO PRN ×4 (00:18→19:54)
[2023-05-11 01:42] LABS: INR 1.17 (0.9-1.15); Partial Thromboplastin Time 46.6 SEC (24.5-34.5); Prothrombin Time 12.2 sec (9.3-11.8)
[2023-05-11] MEDS ORDERED: HEPARIN DRIP/D5W 100UNITS/ML 250 ML IV SCH (02:00)
[2023-05-11] MEDS: VANCOMYCIN 1GM/250ML 250 ML IV SCH ×2 (05:45→16:45)
[2023-05-11] MEDS: methylPREDNISolone SOD SUCC 40 MG/ML VL IV SCH ×2 (05:46→16:26)
[2023-05-11] MEDS: InsuLIN REG 1unit/0.01ml Soln (100units/ml) SC SCH ×3 (06:00→16:52)
[2023-05-11] MEDS: ACCU-CHEK COMFORT CURVE STRIP VI SCH ×3 (07:00→16:45)
[2023-05-11] MEDS: IPRATROPIUM BROM 0.5 MG/2.5ML INH SOL NEB SCH ×3 (07:32→18:12)
[2023-05-11] MEDS: ALBUTEROL MEDNEB 2.5 mg/3ml NEB NEB SCH ×3 (07:32→18:12)
[2023-05-11 08:11] LABS: Eosinophils # (auto) 0 10 ^3/uL (0-0.8); Lymphocytes # (auto) 0.7 10 ^3/uL (0.4-5.4); Lymphocytes % (auto) 3.1 % (10.0-50.0); Monocytes # (auto) 0.5 10 ^3/uL (0-1.3); Nucleated Red Blood Cells % 0.1 %
[2023-05-11 08:13] LABS: Basophils # (auto) 0 10 ^3/uL (0-0.2); Basophils % (auto) 0.1 % (0.0-2.0); Hematocrit 27.9 % (41.0-53.0); Hemoglobin 8.6 g/dL (13.5-17.5); Mean Corpuscular Hemoglobin 24.4 pg (28.0-32.0); Mean Corpuscular Hgb Conc. 30.9 g/dL (32.0-36.0); Monocytes % (auto) 2.2 % (0.0-12.0); Neutrophils # (auto) 20.7 10 ^3/uL (1.6-8.6); Neutrophils % (auto) 94.6 % (37.0-80.0); Red Blood Cells 3.54 10^6/uL (4.5-5.90); Red Cell Distribution Width 17.1 % (11.8-14.3); White Blood Cell 21.9 10^3/uL (4.4-10.8)
[2023-05-11 08:27] LABS: Chloride 97 mmol/L (98-107); Potassium 4.1 mmol/L (3.5-5.1); Sodium 135 mmol/L (136-145)
[2023-05-11 08:28] LABS: Calcium 9.2 mg/dL (8.5-10.1)
[2023-05-11 08:33] LABS: BUN/Creatinine Ratio 33.3 (10.0-20.0); Blood Urea Nitrogen 19 mg/dL (9-23); Glucose 196 mg/dL (74-106)
[2023-05-11] MEDS: METOPROLOL TARTRATE 25 MG TAB PO SCH (09:25)
[2023-05-11] MEDS ORDERED: methylPREDNISolone SOD SUCC 40 MG/ML VL IV SCH (10:00)
[2023-05-11] MEDS ORDERED: ENOXAPARIN SOD 100 MG/1 ML SYRINGE SC SCH (10:00)
[2023-05-11 10:56] LABS: Anion Gap 8 (5-15); Carbon Dioxide 30 mmol/L (20-30)
[2023-05-11] MEDS: ERTAPENEM SOD INJ 1 GM in SODIUM CHL 0.9% 50 ML IV SCH (11:28)
[2023-05-11] MEDS: Ensure HIGH Protein Chocolate 8oz Bottle PO SCH ×2 (13:03→19:00)
[2023-05-11] MEDS ORDERED: ADENOSINE 6 MG/2 ML INJ IV ONE ×3 (14:00→14:02)
== END 2023-05-11 19:55 | DRG 280 ==
LOC: EDBD 17:16 → ER 17:16 → OVERFLOW 21:30 → UNDOADMIN 21:30 → OVERFLOW 21:34 → DOU IN ICU 05-10 15:16
PROVIDERS: ADMIT Internal Medicine; ATTEND Internal Medicine
DX: I47.10 Supraventricular tachycardia, unspecified (principal); I26.99 Other pulmonary embolism without acute cor pulmonale; I21.A1 Myocardial infarction type 2; I82.220 Acute embolism and thrombosis of inferior vena cava; J96.21 Acute and chronic respiratory failure with hypoxia; J15.8 Pneumonia due to other specified bacteria; J44.0 Chronic obstructive pulmonary disease with (acute) lower respiratory infection; J44.1 Chronic obstructive pulmonary disease with (acute) exacerbation; C21.0 Malignant neoplasm of anus, unspecified; I10 Essential (primary) hypertension; N28.89 Other specified disorders of kidney and ureter; Y95 Nosocomial condition; J43.9 Emphysema, unspecified; E11.9 Type 2 diabetes mellitus without complications; I25.2 Old myocardial infarction; Z79.899 Other long term (current) drug therapy; Z87.442 Personal history of urinary calculi; Z86.711 Personal history of pulmonary embolism; Z87.891 Personal history of nicotine dependence; Z95.828 Presence of other vascular implants and grafts; Z99.81 Dependence on supplemental oxygen
CPT/HCPCS: 36415; 71045; 71260; 74177; 80048; 80053; 81001; 82962; 83605; 83880; 84484; 85007; 85025; 85027; 85610; 85730; 87040; 87081; 93005; 93306; 94640; 97163; G0378; J0153; J1335; J2405; J2543

== ENCOUNTER 2023-05-11 21:13 | Inpatient (IN) | payer OTHER ==
[~2023-05-11] VITALS: Ht 185.4 cm; Wt 90.8 kg
[2023-05-11 21:16] VITALS: PULSE 116; RESP 22; O2SAT 93
[2023-05-11] MEDS ORDERED: SODIUM CHLORIDE 0.9% 1,000 ML IV ONE (21:39)
[2023-05-11] MEDS ORDERED: ACETAMINOPHEN 325 MG TAB PO PRN (21:45)
[2023-05-11] MEDS ORDERED: LORazepam 2MG/ML-1ML VIAL IV PRN (21:45)
[2023-05-11] MEDS ORDERED: SODIUM CHLORIDE 0.9% 2,700 ML IV ONE (21:45)
[2023-05-11] MEDS ORDERED: ASPirin 81 mg TAB PO ONE (21:45)
[2023-05-11 21:52] LABS: Basophils # (auto) 0 10 ^3/uL (0-0.2); Basophils % (auto) 0.2 % (0.0-2.0); Eosinophils # (auto) 0 10 ^3/uL (0-0.8); Hematocrit 27.4 % (41.0-53.0); Hemoglobin 8.5 g/dL (13.5-17.5); Lymphocytes # (auto) 0.5 10 ^3/uL (0.4-5.4); Lymphocytes % (auto) 1.9 % (10.0-50.0); Mean Corpuscular Hemoglobin 24.4 pg (28.0-32.0); Mean Corpuscular Volume 78.7 fL (80.0-100.0); Monocytes # (auto) 0.9 10 ^3/uL (0-1.3); Monocytes % (auto) 3.6 % (0.0-12.0); Neutrophils # (auto) 24.2 10 ^3/uL (1.6-8.6); Neutrophils % (auto) 94.3 % (37.0-80.0); Nucleated Red Blood Cells % 0.1 %; Red Blood Cells 3.48 10^6/uL (4.5-5.90); Red Cell Distribution Width 17.1 % (11.8-14.3); White Blood Cell 25.7 10^3/uL (4.4-10.8)
[2023-05-11] MEDS ORDERED: ALBUTEROL MEDNEB 2.5 mg/3ml NEB ONE (21:59)
[2023-05-11] MEDS ORDERED: PANTOPRAZOLE 40 MG/10 ML VIAL INJ IV ONE (22:00)
[2023-05-11] MEDS: guaiFENesin-DM 100/10mg/5ml SYR PO ONE ×2 (22:00→22:10)
[2023-05-11] MEDS ORDERED: ALBUTEROL SULF 2.5 MG/0.5ML(0.5%) NEB SOLN NEB ONE (22:00)
[2023-05-11] MEDS ORDERED: IPRATROPIUM BROM 0.5 MG/2.5ML INH SOL NEB ONE (22:00)
[2023-05-11] MEDS ORDERED: VANCOMYCIN 1GM/250ML 250 ML IV SCH (22:00)
[2023-05-11 22:13] LABS: Alanine Aminotransferase 23 U/L (7-40); Albumin 3.5 g/dL (3.2-4.8); Alkaline Phosphatase 103 U/L (46-116); Anion Gap 8 (5-15); Aspartate Aminotransferase 14 U/L (13-40); BUN/Creatinine Ratio 34.3 (10.0-20.0); Blood Urea Nitrogen 23 mg/dL (9-23); Calcium 9.3 mg/dL (8.5-10.1); Carbon Dioxide 30 mmol/L (20-30); Chloride 94 mmol/L (98-107); Glucose 292 mg/dL (74-106); Potassium 3.8 mmol/L (3.5-5.1); Sodium 132 mmol/L (136-145)
[2023-05-11 22:14] LABS: Bilirubin, Total 0.4 mg/dL (0.2-1.0); Total Protein 6.3 g/dL (5.7-8.2)
[2023-05-11 22:17] LABS: INR 1.18 (0.9-1.15); Partial Thromboplastin Time 30.7 SEC (24.5-34.5); Prothrombin Time 12.3 sec (9.3-11.8)
[2023-05-11] MEDS ORDERED: VANCOMYCIN PER PHARMACY 0 MG IV SCH (22:30)
[2023-05-11] MEDS ORDERED: VANCOMYCIN 1GM/250ML 250 ML IV ONE (22:30)
[2023-05-12] MEDS ORDERED: ALBUTEROL SULF 2.5 MG/0.5ML(0.5%) NEB SOLN NEB ONE (00:15)
[2023-05-12] MEDS ORDERED: MAGNESIUM SULFATE 1GM/100ML 100 ML IV ONE (00:15)
[2023-05-12] MEDS ORDERED: IPRATROPIUM BROM 0.5 MG/2.5ML INH SOL NEB ONE (00:15)
[2023-05-12] MEDS ORDERED: ALBUTEROL MEDNEB 2.5 mg/3ml NEB ONE (00:21)
[2023-05-12] MEDS: PIPERACILLIN-TAZOB 3.375GM 100 ML IV SCH ×2 (01:31→05:55)
[2023-05-12] MEDS: DexAMETHasone SOD PHOS 10MG/1ML VIAL INJ IV SCH ×2 (01:31→05:45)
[2023-05-12 06:26] LABS: Urine Bacteria NONE SEEN /hpf (None Seen); Urine Blood Negative /uL (Negative); Urine Clarity Clear (Clear); Urine Protein, UAD Negative (Negative); Urine Specific Gravity 1.029 (1.001-1.035); Urine Urobilinogen Normal (Negative); Urine WBC 2 /hpf (0 - 3); Urine pH 5.5 (5.0-8.0)
[2023-05-12 06:32] LABS: Urine Color Straw (Yellow)
[2023-05-12 06:45] LABS: Rapid Influenza A Negative (Negative); Rapid Influenza B Negative (Negative)
[2023-05-12] MEDS: VANCOMYCIN 1GM/250ML 250 ML IV SCH ×2 (11:00→23:55)
[2023-05-12] MEDS ORDERED: predniSONE 20 MG TAB PO ONE (12:30)
[2023-05-12] MEDS ORDERED: ERTAPENEM SOD INJ 1 GM in SODIUM CHL 0.9% 50 ML IV ONE (12:30)
[2023-05-12] MEDS ORDERED: METOPROLOL TARTRATE 1MG/1ML-5ML VIAL IV ONE (12:46)
[2023-05-12 13:13] VITALS: BP 130/102; PULSE 98; RESP 18; O2SAT 92
[2023-05-12 13:20] LABS: Basophils # (auto) 0.1 10 ^3/uL (0-0.2); Eosinophils # (auto) 0 10 ^3/uL (0-0.8); Hemoglobin 7.7 g/dL (13.5-17.5); Lymphocytes # (auto) 0.5 10 ^3/uL (0.4-5.4); Lymphocytes % (auto) 1.9 % (10.0-50.0); Mean Corpuscular Hemoglobin 24.4 pg (28.0-32.0); Nucleated Red Blood Cells % 0.2 %
[2023-05-12 13:21] LABS: Basophils % (auto) 0.3 % (0.0-2.0); Hematocrit 25.2 % (41.0-53.0); Mean Corpuscular Hgb Conc. 30.5 g/dL (32.0-36.0); Mean Corpuscular Volume 79.9 fL (80.0-100.0); Monocytes # (auto) 1.2 10 ^3/uL (0-1.3); Monocytes % (auto) 4.8 % (0.0-12.0); Neutrophils # (auto) 22.9 10 ^3/uL (1.6-8.6); Red Blood Cells 3.15 10^6/uL (4.5-5.90); White Blood Cell 24.6 10^3/uL (4.4-10.8)
[2023-05-12 13:35] LABS: Alanine Aminotransferase 27 U/L (7-40); Alkaline Phosphatase 97 U/L (46-116); Anion Gap 5 (5-15); Aspartate Aminotransferase 14 U/L (13-40); Bilirubin, Total 0.3 mg/dL (0.2-1.0); Blood Urea Nitrogen 23 mg/dL (9-23); Calcium 8.1 mg/dL (8.7-10.4); Carbon Dioxide 27 mmol/L (20-30); Chloride 103 mmol/L (98-107); Glucose 337 mg/dL (74-106); Potassium 4.3 mmol/L (3.5-5.1); Sodium 135 mmol/L (136-145); Total Protein 5.1 g/dL (5.7-8.2)
[2023-05-12] MEDS ORDERED: IOHEXOL 350 MG/ML 100ML IJ ONE (13:44)
[2023-05-12] MEDS ORDERED: METOPROLOL TARTRATE 1MG/1ML-5ML VIAL IV PRN (14:15)
[2023-05-12] MEDS: ENOXAPARIN SOD 100 MG/1 ML SYRINGE SC SCH ×2 (14:24→23:50)
[2023-05-12] MEDS: ASCORBIC ACID 500 MG TAB PO SCH (16:30)
[2023-05-12] MEDS ORDERED: DEXTROSE (50%) 50ML SYRG IV PRN ×2 (16:45→22:15)
[2023-05-12] MEDS: METOPROLOL TARTRATE 25 MG TAB PO SCH ×2 (16:48→23:50)
[2023-05-12] MEDS ORDERED: InsuLIN REG 1unit/0.01ml Soln (100units/ml) SC SCH ×2 (17:00→22:00)
[2023-05-12] MEDS ORDERED: ACCU-CHEK COMFORT CURVE STRIP VI SCH (17:00)
[2023-05-12 17:49] LABS: Base Excess 1.3 mmol/L (-2.0-2.0)
[2023-05-12] MEDS: FERROUS SULFATE 325mg EC TAB PO SCH (18:00)
[2023-05-12 18:33] VITALS: O2SAT 95
[2023-05-12] MEDS: IPRATROPIUM BROM 0.5 MG/2.5ML INH SOL NEB SCH (18:33)
[2023-05-12] MEDS: ALBUTEROL MEDNEB 2.5 mg/3ml NEB NEB SCH (18:33)
[2023-05-12 18:36] VITALS: PULSE 108; RESP 22; O2SAT 95
[2023-05-12 18:37] VITALS: O2SAT 95
[2023-05-12 18:39] VITALS: PULSE 114; RESP 22; O2SAT 96
[2023-05-12 19:30] VITALS: O2SAT 92
[2023-05-12] MEDS ORDERED: ONDANSETRON HCL 4 MG/2 ML VIAL IV PRN (20:45)
[2023-05-12] MEDS ORDERED: MORPHINE SULFATE INJ 2 MG/ml SYRG IV PRN (20:45)
[2023-05-12] MEDS ORDERED: DOCUSATE SOD 100 MG CAP PO PRN (20:45)
[2023-05-12] MEDS ORDERED: NITROGLYCERIN 0.4 MG SL TAB SL PRN (20:45)
[2023-05-12] MEDS ORDERED: SODIUM CHLORIDE 0.9% 1,000 ML IV ONE (21:20)
[2023-05-12] MEDS ORDERED: dilTIAZem HCL 180MG ER CAP PO ONE (22:45)
[2023-05-12] MEDS: DOCUSATE SOD 100 MG CAP PO SCH (23:50)
[2023-05-12] MEDS: FAMOTIDINE (10MG/ML) 2ML VL IV SCH (23:50)
[2023-05-12] MEDS: SODIUM CHLORIDE 0.9% 1,000 ML IV SCH (23:51)
[2023-05-13] VITALS (16 sets, daily range): BP systolic 118–143; BP diastolic 68–89; PULSE 10–103; RESP 18–24; TEMP 97.6–98.7; O2SAT 93–99
[2023-05-13] MEDS: InsuLIN REG 1unit/0.01ml Soln (100units/ml) SC SCH ×7 (01:38→23:56)
[2023-05-13] MEDS: ACCU-CHEK COMFORT CURVE STRIP VI SCH ×5 (01:38→23:55)
[2023-05-13] MEDS: VANCOMYCIN 1GM/250ML 250 ML IV SCH ×2 (07:00→21:33)
[2023-05-13 07:20] LABS: Hematocrit 27.4 % (41.0-53.0); Hemoglobin 8.3 g/dL (13.5-17.5); Mean Corpuscular Hemoglobin 24.5 pg (28.0-32.0); Mean Corpuscular Hgb Conc. 30.1 g/dL (32.0-36.0); Mean Corpuscular Volume 81.2 fL (80.0-100.0); Red Blood Cells 3.38 10^6/uL (4.5-5.90); Red Cell Distribution Width 17.5 % (11.8-14.3)
[2023-05-13] MEDS: ALBUTEROL MEDNEB 2.5 mg/3ml NEB NEB SCH ×3 (07:24→18:35)
[2023-05-13] MEDS: IPRATROPIUM BROM 0.5 MG/2.5ML INH SOL NEB SCH ×3 (07:24→18:35)
[2023-05-13 08:00] LABS: White Blood Cell 32.2 10^3/uL (4.4-10.8)
[2023-05-13 08:01] LABS: Basophils % (manual) 0 (0.0-2.0); Blast Cells 0; Eosinophils % (manual) 0 (0-7); Myelocytes % 0; Promyelocytes % 0; Reactive Lymphocytes 0
[2023-05-13 08:30] LABS: Alanine Aminotransferase 23 U/L (7-40); Albumin 3.4 g/dL (3.2-4.8); Alkaline Phosphatase 95 U/L (46-116); Anion Gap 9 (5-15); Aspartate Aminotransferase 18 U/L (13-40); BUN/Creatinine Ratio 37.7 (10.0-20.0); Bilirubin, Total 0.3 mg/dL (0.2-1.0); Blood Urea Nitrogen 20 mg/dL (9-23); Calcium 9.1 mg/dL (8.5-10.1); Carbon Dioxide 24 mmol/L (20-30); Chloride 106 mmol/L (98-107); Potassium 4.3 mmol/L (3.5-5.1); Sodium 139 mmol/L (136-145); Total Protein 5.8 g/dL (5.7-8.2)
[2023-05-13 08:34] LABS: Glucose 134 mg/dL (74-106)
[2023-05-13 09:35] LABS: Band Neutrophils % (manual) 3; Lymphocytes % (manual) 6 (10.0-50.0); Metamyelocytes % 1; Monocytes % (manual) 7 (0-12)
[2023-05-13 09:36] LABS: Anisocytosis Slight; Hypochromia Slight; Platelet Estimate Adequate; Polychromasia Slight
[2023-05-13] MEDS: FAMOTIDINE (10MG/ML) 2ML VL IV SCH ×2 (09:54→21:30)
[2023-05-13] MEDS: DOCUSATE SOD 100 MG CAP PO SCH ×2 (09:55→21:33)
[2023-05-13] MEDS: FERROUS SULFATE 325mg EC TAB PO SCH ×2 (09:56→18:29)
[2023-05-13] MEDS: ASCORBIC ACID 500 MG TAB PO SCH (09:56)
[2023-05-13] MEDS: METOPROLOL TARTRATE 25 MG TAB PO SCH ×2 (09:56→21:31)
[2023-05-13] MEDS: dilTIAZem HCL 180MG ER CAP PO SCH (09:57)
[2023-05-13] MEDS: ENOXAPARIN SOD 100 MG/1 ML SYRINGE SC SCH ×2 (10:00→21:30)
[2023-05-13] MEDS: ERTAPENEM SOD INJ 1 GM in SODIUM CHL 0.9% 50 ML IV SCH (13:05)
[2023-05-13] MEDS ORDERED: HYDROcodone-ACET 5/325MG TAB PO PRN (17:30)
[2023-05-14] VITALS (16 sets, daily range): BP systolic 127–142; BP diastolic 67–80; PULSE 16–110; RESP 18–23; TEMP 97.5–98.4; O2SAT 91–98
[2023-05-14] MEDS: ACCU-CHEK COMFORT CURVE STRIP VI SCH ×5 (03:48→20:08)
[2023-05-14] MEDS: InsuLIN REG 1unit/0.01ml Soln (100units/ml) SC SCH ×5 (03:55→20:08)
[2023-05-14] MEDS: SODIUM CHLORIDE 0.9% 1,000 ML IV SCH ×2 (04:03→14:15)
[2023-05-14] MEDS: IPRATROPIUM BROM 0.5 MG/2.5ML INH SOL NEB SCH ×3 (06:00→19:10)
[2023-05-14] MEDS: ALBUTEROL MEDNEB 2.5 mg/3ml NEB NEB SCH ×3 (06:00→19:10)
[2023-05-14] MEDS: VANCOMYCIN 1GM/250ML 250 ML IV SCH ×2 (06:18→17:54)
[2023-05-14 08:23] LABS: Eosinophils # (auto) 0.3 10 ^3/uL (0-0.8); Eosinophils % (auto) 1.3 % (0.0-7.0); Hematocrit 29.2 % (41.0-53.0)
[2023-05-14 08:24] LABS: Basophils # (auto) 0 10 ^3/uL (0-0.2); Basophils % (auto) 0.1 % (0.0-2.0); Lymphocytes # (auto) 1.1 10 ^3/uL (0.4-5.4); Mean Corpuscular Hemoglobin 24.6 pg (28.0-32.0); Mean Corpuscular Hgb Conc. 30.7 g/dL (32.0-36.0); Mean Corpuscular Volume 80.2 fL (80.0-100.0); Monocytes # (auto) 1.5 10 ^3/uL (0-1.3); Monocytes % (auto) 6.9 % (0.0-12.0); Neutrophils # (auto) 19.3 10 ^3/uL (1.6-8.6); Neutrophils % (auto) 86.7 % (37.0-80.0); Nucleated Red Blood Cells % 0.2 %; Red Blood Cells 3.64 10^6/uL (4.5-5.90); Red Cell Distribution Width 17.8 % (11.8-14.3); White Blood Cell 22.2 10^3/uL (4.4-10.8)
[2023-05-14 08:52] LABS: Alanine Aminotransferase 27 U/L (7-40); Albumin 3.3 g/dL (3.2-4.8); Alkaline Phosphatase 92 U/L (46-116); Anion Gap 7 (5-15); Aspartate Aminotransferase 18 U/L (13-40); Bilirubin, Total 0.3 mg/dL (0.2-1.0); Blood Urea Nitrogen 17 mg/dL (9-23); Calcium 8.2 mg/dL (8.5-10.1); Carbon Dioxide 28 mmol/L (20-30); Chloride 100 mmol/L (98-107); Glucose 130 mg/dL (74-106); Potassium 3.9 mmol/L (3.5-5.1); Sodium 135 mmol/L (136-145); Total Protein 5.5 g/dL (5.7-8.2)
[2023-05-14] MEDS: ASCORBIC ACID 500 MG TAB PO SCH (10:44)
[2023-05-14] MEDS: FERROUS SULFATE 325mg EC TAB PO SCH ×2 (10:44→17:24)
[2023-05-14] MEDS: dilTIAZem HCL 180MG ER CAP PO SCH (10:44)
[2023-05-14] MEDS: DOCUSATE SOD 100 MG CAP PO SCH ×2 (10:45→22:25)
[2023-05-14] MEDS: METOPROLOL TARTRATE 25 MG TAB PO SCH ×2 (10:45→22:25)
[2023-05-14] MEDS: ERTAPENEM SOD INJ 1 GM in SODIUM CHL 0.9% 50 ML IV SCH (10:46)
[2023-05-14] MEDS: FAMOTIDINE (10MG/ML) 2ML VL IV SCH ×2 (10:46→22:24)
[2023-05-14] MEDS: ENOXAPARIN SOD 100 MG/1 ML SYRINGE SC SCH ×2 (10:46→22:24)
[2023-05-14] MEDS: HYDROcodone-ACET 10/325MG TAB PO PRN (11:58)
[2023-05-14] MEDS ORDERED: LORazepam 2MG/ML-1ML VIAL IM ONE (12:45)
[2023-05-14] MEDS ORDERED: GADOTERATE MEG 10 MMOL/20ml INJ (0.5MMOL/ml) IV ONE (14:33)
[2023-05-15] VITALS (15 sets, daily range): BP systolic 110–126; BP diastolic 55–74; PULSE 78–119; RESP 18–32; TEMP 97.9–98.6; O2SAT 90–100
[2023-05-15] MEDS: SODIUM CHLORIDE 0.9% 1,000 ML IV SCH ×3 (01:02→20:15)
[2023-05-15] MEDS: ACCU-CHEK COMFORT CURVE STRIP VI SCH ×7 (01:03→23:37)
[2023-05-15] MEDS: InsuLIN REG 1unit/0.01ml Soln (100units/ml) SC SCH ×7 (01:03→23:37)
[2023-05-15] MEDS ORDERED: VANCOMYCIN 1GM/250ML 250 ML IV SCH (05:00)
[2023-05-15] MEDS: ALBUTEROL MEDNEB 2.5 mg/3ml NEB NEB SCH ×3 (07:23→19:36)
[2023-05-15] MEDS: IPRATROPIUM BROM 0.5 MG/2.5ML INH SOL NEB SCH ×3 (07:23→19:36)
[2023-05-15 09:19] LABS: Hepatitis B Surface Antigen Negative (Negative)
[2023-05-15] MEDS: ERTAPENEM SOD INJ 1 GM in SODIUM CHL 0.9% 50 ML IV SCH (09:27)
[2023-05-15] MEDS: ASCORBIC ACID 500 MG TAB PO SCH (09:28)
[2023-05-15] MEDS: FERROUS SULFATE 325mg EC TAB PO SCH ×2 (09:28→16:59)
[2023-05-15] MEDS: ENOXAPARIN SOD 100 MG/1 ML SYRINGE SC SCH ×2 (09:28→22:20)
[2023-05-15] MEDS: METOPROLOL TARTRATE 25 MG TAB PO SCH ×2 (09:30→22:19)
[2023-05-15] MEDS: dilTIAZem HCL 180MG ER CAP PO SCH (09:30)
[2023-05-15] MEDS: DOCUSATE SOD 100 MG CAP PO SCH ×2 (09:31→22:19)
[2023-05-15 09:42] LABS: Hepatitis C Antibody Negative (Negative)
[2023-05-15] MEDS: FAMOTIDINE (10MG/ML) 2ML VL IV SCH ×2 (09:43→22:00)
[2023-05-15] MEDS: HYDROcodone-ACET 10/325MG TAB PO PRN ×2 (10:31→20:11)
[2023-05-15 10:59] LABS: Basophils # (auto) 0 10 ^3/uL (0-0.2); Basophils % (auto) 0.2 % (0.0-2.0); Hematocrit 28.1 % (41.0-53.0); Neutrophils # (auto) 17.5 10 ^3/uL (1.6-8.6)
[2023-05-15 11:01] LABS: Eosinophils # (auto) 0.3 10 ^3/uL (0-0.8); Eosinophils % (auto) 1.7 % (0.0-7.0); Hemoglobin 8.6 g/dL (13.5-17.5); Lymphocytes % (auto) 5.1 % (10.0-50.0); Mean Corpuscular Hemoglobin 24.8 pg (28.0-32.0); Mean Corpuscular Hgb Conc. 30.5 g/dL (32.0-36.0); Mean Corpuscular Volume 81.3 fL (80.0-100.0); Monocytes # (auto) 1.3 10 ^3/uL (0-1.3); Monocytes % (auto) 6.4 % (0.0-12.0); Neutrophils % (auto) 86.6 % (37.0-80.0); Nucleated Red Blood Cells % 0.3 %; Red Blood Cells 3.45 10^6/uL (4.5-5.90); Red Cell Distribution Width 17.9 % (11.8-14.3); White Blood Cell 20.2 10^3/uL (4.4-10.8)
[2023-05-15 11:57] LABS: Alanine Aminotransferase 18 U/L (7-40); Albumin 3.2 g/dL (3.2-4.8); Alkaline Phosphatase 76 U/L (46-116); Anion Gap 9 (5-15); Aspartate Aminotransferase 16 U/L (13-40); BUN/Creatinine Ratio 21.7 (10.0-20.0); Blood Urea Nitrogen 10 mg/dL (9-23); Calcium 8.3 mg/dL (8.5-10.1); Carbon Dioxide 25 mmol/L (20-30); Chloride 100 mmol/L (98-107); Glucose 127 mg/dL (74-106); Potassium 3.6 mmol/L (3.5-5.1); Sodium 134 mmol/L (136-145)
[2023-05-15 11:58] LABS: Bilirubin, Total 0.4 mg/dL (0.2-1.0); Total Protein 5.5 g/dL (5.7-8.2)
[2023-05-15] MEDS ORDERED: cefTRIAXone 1GM/50ML D5W 50 ML IV ONE (15:30)
[2023-05-15] MEDS: DOXYCYCLINE 100 MG TAB/CAP PO SCH (22:19)
[2023-05-16] VITALS (13 sets, daily range): BP systolic 115–122; BP diastolic 54–68; PULSE 98–113; RESP 16–21; TEMP 97.5–98.7; O2SAT 90–100
[2023-05-16] MEDS: InsuLIN REG 1unit/0.01ml Soln (100units/ml) SC SCH ×5 (03:36→23:18)
[2023-05-16] MEDS: ACCU-CHEK COMFORT CURVE STRIP VI SCH ×5 (03:36→23:10)
[2023-05-16] MEDS: SODIUM CHLORIDE 0.9% 1,000 ML IV SCH ×2 (05:49→16:15)
[2023-05-16] MEDS: ALBUTEROL MEDNEB 2.5 mg/3ml NEB NEB SCH ×3 (06:45→18:15)
[2023-05-16] MEDS: IPRATROPIUM BROM 0.5 MG/2.5ML INH SOL NEB SCH ×3 (06:45→18:15)
[2023-05-16] MEDS: ENOXAPARIN SOD 100 MG/1 ML SYRINGE SC SCH ×2 (09:02→23:10)
[2023-05-16] MEDS: FERROUS SULFATE 325mg EC TAB PO SCH ×2 (09:03→18:00)
[2023-05-16] MEDS: ASCORBIC ACID 500 MG TAB PO SCH (09:03)
[2023-05-16] MEDS: METOPROLOL TARTRATE 25 MG TAB PO SCH (09:03)
[2023-05-16] MEDS: DOCUSATE SOD 100 MG CAP PO SCH ×2 (09:03→23:10)
[2023-05-16] MEDS: DOXYCYCLINE 100 MG TAB/CAP PO SCH ×2 (09:03→23:09)
[2023-05-16] MEDS: dilTIAZem HCL 180MG ER CAP PO SCH (09:03)
[2023-05-16] MEDS: HYDROcodone-ACET 10/325MG TAB PO PRN (09:14)
[2023-05-16] MEDS: cefTRIAXone 1GM/50ML D5W 50 ML IV SCH (13:02)
[2023-05-16] MEDS ORDERED: DEXTROSE (50%) 50ML SYRG IV PRN (16:45)
[2023-05-16] MEDS: METOPROLOL TARTRATE 50 MG TAB PO SCH (23:10)
[2023-05-17] VITALS (15 sets, daily range): BP systolic 97–130; BP diastolic 57–72; PULSE 60–103; RESP 16–22; TEMP 97.4–99.9; O2SAT 94–100
[2023-05-17] MEDS: SODIUM CHLORIDE 0.9% 1,000 ML IV SCH (00:05)
[2023-05-17] MEDS: InsuLIN REG 1unit/0.01ml Soln (100units/ml) SC SCH ×4 (06:34→21:58)
[2023-05-17] MEDS: ACCU-CHEK COMFORT CURVE STRIP VI SCH ×4 (06:36→21:53)
[2023-05-17] MEDS: ALBUTEROL MEDNEB 2.5 mg/3ml NEB NEB SCH ×3 (07:10→18:58)
[2023-05-17] MEDS: IPRATROPIUM BROM 0.5 MG/2.5ML INH SOL NEB SCH ×3 (07:10→18:58)
[2023-05-17 07:23] LABS: Basophils % (auto) 0.2 % (0.0-2.0); Lymphocytes % (auto) 4.8 % (10.0-50.0); Mean Corpuscular Hgb Conc. 30.7 g/dL (32.0-36.0); Monocytes # (auto) 1.3 10 ^3/uL (0-1.3); Neutrophils % (auto) 86.7 % (37.0-80.0); Red Blood Cells 3.47 10^6/uL (4.5-5.90)
[2023-05-17 07:25] LABS: Basophils # (auto) 0 10 ^3/uL (0-0.2); Eosinophils # (auto) 0.5 10 ^3/uL (0-0.8); Eosinophils % (auto) 2.2 % (0.0-7.0); Hematocrit 27.3 % (41.0-53.0); Hemoglobin 8.4 g/dL (13.5-17.5); Mean Corpuscular Hemoglobin 24.2 pg (28.0-32.0); Mean Corpuscular Volume 78.9 fL (80.0-100.0); Monocytes % (auto) 6.1 % (0.0-12.0); Neutrophils # (auto) 18.6 10 ^3/uL (1.6-8.6); Red Cell Distribution Width 18.6 % (11.8-14.3); White Blood Cell 21.5 10^3/uL (4.4-10.8)
[2023-05-17 07:34] LABS: Alanine Aminotransferase 17 U/L (7-40); Albumin 3.2 g/dL (3.2-4.8); Alkaline Phosphatase 93 U/L (46-116); Anion Gap 6 (5-15); Aspartate Aminotransferase 17 U/L (13-40); BUN/Creatinine Ratio 21.3 (10.0-20.0); Bilirubin, Total 0.4 mg/dL (0.2-1.0); Blood Urea Nitrogen 10 mg/dL (9-23); Calcium 8.4 mg/dL (8.5-10.1); Carbon Dioxide 30 mmol/L (20-30); Chloride 99 mmol/L (98-107); Glucose 152 mg/dL (74-106); Potassium 3.8 mmol/L (3.5-5.1); Sodium 135 mmol/L (136-145); Total Protein 5.5 g/dL (5.7-8.2)
[2023-05-17] MEDS: FERROUS SULFATE 325mg EC TAB PO SCH ×2 (09:10→17:44)
[2023-05-17] MEDS: METOPROLOL TARTRATE 50 MG TAB PO SCH ×2 (09:11→21:52)
[2023-05-17] MEDS: cefTRIAXone 1GM/50ML D5W 50 ML IV SCH (09:11)
[2023-05-17] MEDS: PANTOPRAZOLE 40 MG TAB PO SCH (09:12)
[2023-05-17] MEDS: DOXYCYCLINE 100 MG TAB/CAP PO SCH ×2 (09:12→21:52)
[2023-05-17] MEDS: DOCUSATE SOD 100 MG CAP PO SCH ×2 (09:12→21:52)
[2023-05-17] MEDS: ASCORBIC ACID 500 MG TAB PO SCH (09:12)
[2023-05-17] MEDS: ENOXAPARIN SOD 100 MG/1 ML SYRINGE SC SCH ×2 (09:16→21:53)
[2023-05-17] MEDS: HYDROcodone-ACET 10/325MG TAB PO PRN ×2 (09:17→19:31)
[2023-05-17] MEDS: dilTIAZem HCL 180MG ER CAP PO SCH (09:21)
[2023-05-18] VITALS (11 sets, daily range): BP systolic 106–118; BP diastolic 60–65; PULSE 18–98; RESP 16–71; TEMP 97.8–98.4; O2SAT 9–99
[2023-05-18] MEDS: ACCU-CHEK COMFORT CURVE STRIP VI SCH ×2 (05:36→11:33)
[2023-05-18] MEDS: InsuLIN REG 1unit/0.01ml Soln (100units/ml) SC SCH ×2 (05:41→11:40)
[2023-05-18] MEDS: HYDROcodone-ACET 10/325MG TAB PO PRN (05:44)
[2023-05-18] MEDS: IPRATROPIUM BROM 0.5 MG/2.5ML INH SOL NEB SCH ×2 (06:11→11:24)
[2023-05-18] MEDS: ALBUTEROL MEDNEB 2.5 mg/3ml NEB NEB SCH ×2 (06:11→11:24)
[2023-05-18] MEDS: cefTRIAXone 1GM/50ML D5W 50 ML IV SCH (08:52)
[2023-05-18] MEDS: ENOXAPARIN SOD 100 MG/1 ML SYRINGE SC SCH (08:52)
[2023-05-18] MEDS: dilTIAZem HCL 180MG ER CAP PO SCH (08:54)
[2023-05-18] MEDS: FERROUS SULFATE 325mg EC TAB PO SCH (08:54)
[2023-05-18] MEDS: ASCORBIC ACID 500 MG TAB PO SCH (08:54)
[2023-05-18] MEDS: METOPROLOL TARTRATE 50 MG TAB PO SCH (08:56)
[2023-05-18] MEDS: DOXYCYCLINE 100 MG TAB/CAP PO SCH (08:56)
[2023-05-18] MEDS: PANTOPRAZOLE 40 MG TAB PO SCH (08:56)
[2023-05-18] MEDS: DOCUSATE SOD 100 MG CAP PO SCH (09:01)
== END 2023-05-18 15:30 | DRG 871 ==
LOC: EDBD 21:13 → ER 21:13 → TELE 05-12 20:51 → TELE-WESTW 05-12 20:51
PROVIDERS: ADMIT Nurse Practitioner Family; ATTEND Nurse Practitioner Acute Care
DX: A41.9 Sepsis, unspecified organism (principal); J15.69 Pneumonia due to other Gram-negative bacteria; J96.21 Acute and chronic respiratory failure with hypoxia; I47.10 Supraventricular tachycardia, unspecified; E11.65 Type 2 diabetes mellitus with hyperglycemia; J43.9 Emphysema, unspecified; D50.9 Iron deficiency anemia, unspecified; I10 Essential (primary) hypertension; J98.4 Other disorders of lung; Z79.01 Long term (current) use of anticoagulants; I25.2 Old myocardial infarction; Z79.899 Other long term (current) drug therapy; Z95.828 Presence of other vascular implants and grafts; Z86.711 Personal history of pulmonary embolism; Z87.891 Personal history of nicotine dependence; Z99.81 Dependence on supplemental oxygen
CPT/HCPCS: 36415; 36600; 71045; 71275; 72142; 80053; 80202; 81001; 82565; 82805; 82962; 83540; 83550; 83605; 83735; 83880; 84443; 84484; 85007; 85025; 85027; 85610; 85730; 86803; 86850; 86900; 86901; 87040; 87077; 87081; 87086; 87186; 87340; 87804; 93005; 93306; 94640; 96361; 96365; 96366; 96367; 96375; 97110; 97116; 97163; 97530; 99291; C9113; G0378; J0696; J1100; J1335; J1815; J2543; J3490

== ENCOUNTER 2023-06-09 07:56 | Emergency (ER) | payer OTHER ==
[~2023-06-09] VITALS: Ht 190.5 cm; Wt 84.0 kg
[2023-06-09] MEDS ORDERED: SODIUM CHLORIDE 0.9% 1,000 ML IVB ONE (08:15)
[2023-06-09 08:27] VITALS: PULSE 130; RESP 27; TEMP 98.3; O2SAT 91
[2023-06-09 08:33] LABS: Base Excess 2.9 mmol/L (-2.0-2.0)
[2023-06-09 08:43] LABS: Basophils # (auto) 0.1 10 ^3/uL (0-0.2); Basophils % (auto) 0.6 % (0.0-2.0); Eosinophils # (auto) 0.3 10 ^3/uL (0-0.8); Lymphocytes # (auto) 0.7 10 ^3/uL (0.4-5.4); Mean Corpuscular Hgb Conc. 30.4 g/dL (32.0-36.0)
[2023-06-09 08:47] LABS: Eosinophils % (auto) 1.5 % (0.0-7.0); Hematocrit 28.8 % (41.0-53.0); Hemoglobin 8.7 g/dL (13.5-17.5); Lymphocytes % (auto) 3.7 % (10.0-50.0); Mean Corpuscular Hemoglobin 23.5 pg (28.0-32.0); Mean Corpuscular Volume 77.2 fL (80.0-100.0); Monocytes # (auto) 1.1 10 ^3/uL (0-1.3); Monocytes % (auto) 5.6 % (0.0-12.0); Neutrophils % (auto) 88.6 % (37.0-80.0); Nucleated Red Blood Cells % 0.2 %; Red Blood Cells 3.73 10^6/uL (4.5-5.90); Red Cell Distribution Width 18.9 % (11.8-14.3); White Blood Cell 20.3 10^3/uL (4.4-10.8)
[2023-06-09 08:56] LABS: INR 1.21 (0.9-1.15); Partial Thromboplastin Time 31.4 SEC (24.5-34.5); Prothrombin Time 12.5 sec (9.3-11.8)
[2023-06-09 09:03] LABS: Alanine Aminotransferase 32 U/L (7-40); Albumin 3.3 g/dL (3.2-4.8); Alkaline Phosphatase 227 U/L (46-116); Anion Gap 7 (5-15); Aspartate Aminotransferase 10 U/L (13-40); BUN/Creatinine Ratio 26.8 (10.0-20.0); Blood Urea Nitrogen 15 mg/dL (9-23); Calcium 9.6 mg/dL (8.7-10.4); Carbon Dioxide 29 mmol/L (20-30); Chloride 95 mmol/L (98-107); Glucose 159 mg/dL (74-106); Magnesium 1.7 mg/dL (1.6-2.6); Potassium 4.3 mmol/L (3.5-5.1); Sodium 131 mmol/L (136-145)
[2023-06-09 09:04] LABS: Bilirubin, Total 0.3 mg/dL (0.2-1.0); Total Protein 5.5 g/dL (5.7-8.2)
[2023-06-09] MEDS ORDERED: IOHEXOL 350 MG/ML 100ML IJ ONE (09:33)
[2023-06-09] MEDS ORDERED: METOPROLOL TARTRATE 1MG/1ML-5ML VIAL IV PRN (13:30)
[2023-06-09] MEDS ORDERED: ENOXAPARIN SOD 100 MG/1 ML SYRINGE SC ONE (14:00)
[2023-06-09] MEDS: METOPROLOL TARTRATE 50 MG TAB PO SCH ×2 (14:42→22:15)
[2023-06-09] MEDS ORDERED: HYDROcodone-ACET 5/325MG TAB PO PRN ×2 (16:00→16:15)
[2023-06-09] MEDS ORDERED: LEVALBUTEROL HCL 1.25 MG/3 ML NEB NEB SCH (18:00)
[2023-06-09 18:25] VITALS: PULSE 111; RESP 20; O2SAT 90
[2023-06-09] MEDS: LEVALBUTEROL HCL 1.25 MG/3 ML NEB NEB SCH (18:25)
[2023-06-09] MEDS: IPRATROPIUM BROM 0.5 MG/2.5ML INH SOL NEB SCH (18:25)
[2023-06-09 18:35] VITALS: PULSE 113; RESP 20; O2SAT 90
[2023-06-09 19:30] VITALS: PULSE 118; RESP 22; O2SAT 94
[2023-06-09] MEDS: ENOXAPARIN SOD 100 MG/1 ML SYRINGE SC SCH (22:15)
[2023-06-10 06:33] VITALS: PULSE 115; RESP 40; O2SAT 98
[2023-06-10] MEDS: LEVALBUTEROL HCL 1.25 MG/3 ML NEB NEB SCH (06:33)
[2023-06-10] MEDS: IPRATROPIUM BROM 0.5 MG/2.5ML INH SOL NEB SCH (06:33)
[2023-06-10 06:41] VITALS: PULSE 124; RESP 37; O2SAT 97
[2023-06-10 08:18] VITALS: BP 108/75; PULSE 129; RESP 38; O2SAT 9
[2023-06-10] MEDS: ENOXAPARIN SOD 100 MG/1 ML SYRINGE SC SCH (09:08)
[2023-06-10] MEDS: METOPROLOL TARTRATE 50 MG TAB PO SCH (09:08)
[2023-06-11] MEDS ORDERED: ENOXAPARIN SOD 80 MG/0.8ML SYRINGE SC SCH (22:00)
== END 2023-06-10 09:19 | disposition short-term general hospital (02) ==
LOC: EDBD 07:56 → ER 07:56
DX: J96.01 Acute respiratory failure with hypoxia (principal); D72.829 Elevated white blood cell count, unspecified; R22.1 Localized swelling, mass and lump, neck; J44.9 Chronic obstructive pulmonary disease, unspecified; E11.9 Type 2 diabetes mellitus without complications; Z79.2 Long term (current) use of antibiotics; Z79.899 Other long term (current) drug therapy
CPT/HCPCS: 36415; 36600; 71045; 71275; 80053; 82805; 83735; 83880; 84484; 85025; 85610; 85730; 93005; 94640; 96360; 96361; 96372; 99285; J1650; J7612; J7644; Q9967